=== PATIENT | female | born 1990 | race Two or more races ===

== ENCOUNTER 2017-02-27 19:22 | Emergency (ER) | payer MEDICAID ==
[~2017-02-27] VITALS: Ht 160 cm; Wt 63.0 kg
[~2017-02-27 19:22] MED LIST: ACET500C5 PO; CETI10CA PO; CIPR500T4 PO; GUAI120S26 PO; HYDR-906 PO; IBUP-1542 PO
[2017-02-27 19:28] VITALS: Ht 160 cm; Wt 63.0 kg
[2017-02-27 21:51] LABS: URINE BLOOD (Dip) POC 2+ (NEGATIVE)
[2017-02-27] MEDS ORDERED: morphine 4 MG/ML VIAL IV STA (21:54)
[2017-02-27] MEDS ORDERED: ONDANSETRON 4 MG INJ IV STA (21:54)
[2017-02-27] MEDS ORDERED: SOD CHLORIDE 0.9% 1,000 ML IV ONE (22:00)
--- NOTE | 2017-02-27 22:05 | ERD ---
ER Documentation Chief Complaint Date/Time DATE: 02/27/17 TIME: 21:57 Chief Complaint bladder infection x "months" HPI This is a 26-year-old female presenting to emergency department for left lower quadrant abdominal pain. States she has had intermittent left lower quadrant pain that has worsened today. Patient is seen crying while in the initial exam room. Patient states pain radiates from left lower quadrant to left flank. patient has dysuria without hematuria. Patient states last menstrual period 10/2017. Patient unsure on possibility of . Denies nausea, vomiting or diarrhea. No constipation. No fevers or chills. Denies chest pain, shortness of breath or difficulty breathing. Patient has history of chronic lower back pain. ROS All systems reviewed and are negative except as per history of present illness. Medications Home Meds Active Scripts Ibuprofen* (Motrin*) 600 Mg Tab, 600 MG PO Q6, #15 TAB Prov:GAVIN LYNCH NP 02/28/17 Tamsulosin Hcl* (Flomax*) 0.4 Mg Cap.er.24h, 0.4 MG PO DAILY, #5 CAP Prov:GAVIN LYNCH NP 02/28/17 Nitrofurantoin Monohyd Macrocr* (Macrobid*) 100 Mg Capsr, 100 MG PO BID for 5 Days, CAP Prov:GAVIN LYNCH NP 02/28/17 Hydrocodone/Acetaminophen (Ralston 5-325 Tablet) 1 Each Tablet, 1 TAB PO Q6H Y for PAIN, #15 TAB Prov:GAVIN LYNCH NP 02/28/17 Hydrocodone/Acetaminophen (Ralston 5-325 Tablet) 1 Each Tablet, 1 TAB PO Q6H Y for SEVERE PAIN LEVEL 7-10, #20 TAB Prov:ROMARIO HENRY NP 11/04/16 Ciprofloxacin Hcl* (Ciprofloxacin Hcl*) 500 Mg Tablet, 500 MG PO BID for 10 Days , TAB Prov:ROMARIO HENRY NP 11/04/16 Cetirizine Hcl* (Zyrtec*) 10 Mg Capsule, 10 MG PO DAILY, #30 TAB.CHEW Prov:ROMARIO HENRY NP 11/04/16 Uneehzjrcbc-M-Vrzrbiukvv Hb* (Guaifenesin* DM Syrup) 120 Ml Syrup, 10 ML PO Q4H Y for COUGH, #120 ML Prov:ROMARIO HENRY APPRAISER 11/04/16 Acetaminophen* (Tylophen*) 500 Mg Capsule, 1 CAP PO Q6H Y for PAIN AND OR ELEVATED TEMP, #20 CAP Prov:JOSSELYNROMARIO GAVIN APPRAISER 11/04/16 Ibuprofen* (Motrin*) 600 Mg Tab, 600 MG PO Q6H Y for PAIN AND OR ELEVATED TEMP, #30 TAB Prov:ROMARIO HENRY APPRAISER 11/04/16 Hydrocodone Bit-Acetaminophen (Ralston) 5-325 Mg Tablet, 1 TAB PO Q6 Y for PAIN, # 10 TAB Prov:TANIYA HERNANDEZ MD 12/25/15 Allergies Allergies: Coded Allergies: No Known Drug Allergies (Verified Allergy, Unknown, 12/25/15) PMhx/Soc History of Surgery: Yes (appendectomy) Anesthesia Reaction: No Hx Neurological Disorder: Yes (sciatica in past) Hx Respiratory Disorders: No Hx Cardiac Disorders: No Hx Psychiatric Problems: No Hx Miscellaneous Medical Probl: No Hx Alcohol Use: Yes (soccially) Hx Substance Use: Yes (marijuana regularly) Hx Tobacco Use: Yes Smoking Status: Current every day smoker Physical Exam Vitals Vital Signs Date Time Temp Pulse Resp B/P Pulse Ox O2 Delivery O2 Flow Rate FiO2 02/27/17 23:19 71 17 109/66 97 Room Air 02/27/17 19:28 97.8 62 17 126/79 99 Physical Exam Const: Alert, crying and writhing in pain Head: Atraumatic Eyes: Normal Conjunctiva ENT: Normal External Ears, Nose and Mouth. Neck: Full range of motion..~ No meningismus. Resp: Clear to auscultation bilaterally Cardio: Regular rate and rhythm, no murmurs Abd: Soft, non tender, non distended. Normal bowel sounds Skin: No petechiae or rashes Back: No midline or flank tenderness Ext: No cyanosis, or edema Neur: Awake and alert Psych: Normal Mood and Affect Result Diagram: 02/27/17220402/27/172204 Results 24 hrs Laboratory Tests Test 02/27/17 21:51 02/27/17 22:05 Bedside Urine pH (LAB) 5.5 Bedside Urine Protein (LAB) 1+ Bedside Urine Glucose (UA) Negative Bedside Urine Ketones (LAB) Negative Bedside Urine Blood 2+ Bedside Urine Nitrite (LAB) Negative Bedside Urine Leukocyte Esterase (L Trace White Blood Count 15.310^3/ul Red Blood Count 4.9410^6/ul Hemoglobin 12.7g/dl Hematocrit 41.9% Mean Corpuscular Volume 84.8fl Mean Corpuscular Hemoglobin 25.7pg Mean Corpuscular Hemoglobin Concent 30.3g/dl Red Cell Distribution Width 13.2% Platelet Count 23600^3/UL Mean Platelet Volume 9.9fl Neutrophils % 83.6% Lymphocytes % 10.0% Monocytes % 5.7% Eosinophils % 0.1% Basophils % 0.3% Nucleated Red Blood Cells % 0.0/100WBC Neutrophils # 12.810^3/ul Lymphocytes # 1.510^3/ul Monocytes # 0.910^3/ul Eosinophils # 0.010^3/ul Basophils # 0.010^3/ul Nucleated Red Blood Cells # 0.010^3/ul Sodium Level 141mmol/L Potassium Level 3.8mmol/L Chloride Level 102mmol/L Carbon Dioxide Level 25mmol/L Anion Gap 18 Blood Urea Nitrogen 17mg/dl Creatinine 0.81mg/dl Glucose Level 99mg/dl Calcium Level 9.7mg/dl Current Medications Medications (Trade) Dose Ordered Sig/Holly Route PRN Reason Start Time Stop Time Status Last Admin Dose Admin Sodium Chloride (NS) 1,000 ml @ 1,000 mls/hr Q1H ONCE IV 02/27/17 22:00 02/27/17 22:59 DC 02/27/17 22:21 Morphine Sulfate (morphine) 4 mg ONCE STAT IV 02/27/17 21:54 02/27/17 21:56 DC 02/27/17 22:21 Ondansetron HCl (Zofran Inj) 4 mg ONCE STAT IV 02/27/17 21:54 02/27/17 21:56 DC 02/27/17 22:21 Procedures/MDM ED COURSE: The patient was stable throughout ED course. I kept the patient and/or family informed of laboratory and diagnostic imaging results throughout the ED course. Laboratory CBC WBC 15.3 BMP no significant electrolyte imbalance Urine dip trace leukocytosis, 2+ blood, 1+ protein Urine negative Imaging CT abdomen and pelvis Patient: DAHIANA RAMIREZ : 1990 Age: 26 Sex: F MR #: [id number] DOS: 02/27/17 2154 Ordering MD: GAVIN LYNCH NP Location: [facility] Room/Bed: PROCEDURE: CT ABDOMEN/PELVIS WITHOUT CONTRAST CLINICAL INDICATION: 26-year-old female with left lower quadrant pain of increasing severity with associated diarrhea. TECHNIQUE: The study was performed utilizing a GE [employer] 64-slice CT scanner. Direct axial sections were obtained through the abdomen and pelvis without the use of intravenous contrast material. Sagittal and coronal reformations were obtained. One or more of the following dose reduction techniques were utilized: automated exposure control, adjustment of the mA and/ or kV according to patient's size or use of iterative reconstruction technique. The images were reviewed on a PACS workstation. CTD/vol = 10.5 mGy; Total Exam DLP = 529.5 mGy-cm. COMPARISON: None. FINDINGS: The lung bases are unremarkable. There is no evidence for significant pleural effusion. The liver has a normal size and contour without focal areas of abnormal density. No intrahepatic nor extrahepatic biliary ductal dilatation is seen. There is diffuse increased density within the gallbladder presumably representing sludge without evidence for calcified stones, significant wall thickening or pericholecystic fluid. The pancreas is without areas of abnormal attenuation. The spleen is identified and has a normal size without abnormal density. The adrenal glands are unremarkable. The right kidney is without abnormal density, calculi or obstruction. There is moderate left-sided hydroureteronephrosis with an obstructing calculus at the left ureterovesical junction region measuring approximately 8 x 9 x 5 mm. There is a small punctate 2 x 2 mm nonobstructing left mid renal calculus. The urinary bladder is decompressed. There is no evidence for bowel obstruction. The appendix is not clearly visualized however there is no periappendiceal inflammatory changes. The uterus is anteflexed. There is minimal pelvic free fluid. The aortoiliac vessels are without aneurysmal dilatation. The osseous structures are intact. IMPRESSION: 1. Moderate left-sided hydroureteronephrosis with an obstructing left ureterovesical junction 8 x 9 x 5 mm calculus. 2. Punctate nonobstructing left mid renal calculus. 3. Probable sludge within the gallbladder. 4. No evidence for bowel obstruction. 5. Minimal pelvic free fluid. Pelvic ultrasound Patient: DAHIANA RAMIREZ : 1990 Age: 26 Sex: F MR #: [id number] [facility] #: [id number] DOS: 02/27/17 2205 Ordering MD: GAVIN LYNCH NP Location: [facility] Room/Bed: PROCEDURE: US Non-OB Pelvis. CLINICAL INDICATION: Left pelvic pain for months. TECHNIQUE: Multiple sonographic images of the pelvis were obtained utilizing a transabdominal and endovaginal technique. The images were reviewed on a PACS workstation. COMPARISON: CT of the abdomen and pelvis dated 02/27/2017 FINDINGS: The uterus is visualized and measures 8.7 x 4.5 x 6.1 cm. The endometrial echo complex is normal and measures 12 mm. There are air bubbles in the cervical region. The right ovary measures 3.2 x 2.8 x 2.0 cm. The left ovary measures 3.0 x 2.0 x 2.1 cm. Blood flow is demonstrated to both ovaries. No adnexal masses are noted. There is a small volume of free fluid in the pelvis. IMPRESSION: 1. Air bubbles in the cervical region, corresponding to air seen in the vaginal canal on the prior CT. 2. Otherwise normal appearance of the uterus and ovaries. 3. Small volume of free pelvic fluid. MDM: 26-year-old female presents emergency department for left lower quadrant abdominal pain with dysuria. Patient states she has had symptoms for the past 2 months however pain worsened today. Patient states she was seen 2 months ago and was diagnosed with a urinary tract infection and given antibiotics. Upon initial assessment, patient is seen crying and writhing in pain. Urine was collected which revealed trace leukocytosis with 2+ blood and 1+ protein. Urine is negative. CMP and BMP were ordered. CT abdomen and pelvis were ordered. IV access obtained and patient given morphine and Zofran through the IV. Patient given 1 L fluid bolus of normal saline. CT abdomen pelvis reviewed by radiologist as moderate left-sided hydroureter nephrosis with obstructing left ureterovesical junction 8 x 9 x 5 mm calculus. Punctate nonobstructing left mid renal calculus. Probable sludge within the gallbladder. No evidence for bowel obstruction. Minimal pelvic free fluid. Pelvic US reviewed by radiologist as normal appearance of the uterus and ovaries. Small volume of free pelvic fluid. Upon reassessment, patient states pain has reduced and patient is now comfortable and smiling. Consulted Dr. Hernandez regarding this patient and findings. Dr. Hernandez suggested I consult the on-call urologist Dr. Escamilla. Consulted Dr. Escamilla regarding this patient and due to patient's stable vital signs and unremarkable creatinine, patient is able to be seen outpatient by Dr. Escamilla or other urologist for follow up on Friday03/03/2017. Differential diagnosis includes but not limited to diverticulitis, diverticulosis, UTI, pyelonephritis, nephrolithiasis, ovarian cyst, ovarian torsion and acute exacerbation of chronic low back pain. Patient is appropriate for outpatient management and will be discharged with prescription for Ralston, Ibuprofen and Flomax. Instructed patient to follow up with Dr. Escamilla on Friday03/03/2017. Return to ED for any worsening pain, vomiting, high fever, chest pain, shortness of breath, difficulty urination or any new or worsening symptoms. Spoke at length with patient regarding patient's diagnosis and management. Patient verbalizes understanding. All questions answered at discharge. Departure Diagnosis: Primary Impression: Nephrolithiasis Condition: Stable GAVIN LYNCH NP Feb 27, 2017 22:05
[2017-02-27 22:21] LABS: ADD SCAN DIFF NO
[2017-02-27 22:23] LABS: BASOPHILS % 0.3 % (0.0-2.0); EOSINOPHILS % 0.1 % (0.0-7.0); HEMATOCRIT 41.9 % (37.0-47.0); HEMOGLOBIN 12.7 g/dl (12.0-16.0); LYMPHOCYTES # 1.5 10^3/ul (0.8-2.9); MEAN CORPUSCULAR HEMOGLOBIN 25.7 pg (29.0-33.0); MEAN CORPUSCULAR HGB CONC 30.3 g/dl (32.0-37.0); MEAN CORPUSCULAR VOLUME 84.8 fl (82.0-101.0); MEAN PLATELET VOLUME 9.9 fl (7.4-10.4); MONOCYTE # 0.9 10^3/ul (0.3-0.9); MONOCYTES % 5.7 % (0.0-11.0); NEUTROPHIL # 12.8 10^3/ul (1.6-7.5); NEUTROPHILS % 83.6 % (39.0-77.0); PLATELET COUNT 304 10^3/UL (140-415); RED BLOOD COUNT 4.94 10^6/ul (4.20-5.40); RED CELL DISTRIBUTION WIDTH 13.2 % (11.5-14.5); WHITE BLOOD COUNT 15.3 10^3/ul (4.8-10.8)
[2017-02-27 22:35] LABS: POTASSIUM 3.8 mmol/L (3.5-5.1)
[2017-02-27 22:38] LABS: CREATININE 0.81 mg/dl (0.44-1.00)
[2017-02-27 22:39] LABS: CALCIUM 9.7 mg/dl (8.4-10.2)
--- NOTE | 2017-02-27 22:42 | RADRPT ---
PROCEDURE: CT ABDOMEN/PELVIS WITHOUT CONTRAST CLINICAL INDICATION: 26-year-old female with left lower quadrant pain of increasing severity with associated diarrhea. TECHNIQUE: The study was performed utilizing a GE [employer] 64-slice CT scanner. Direct axia l sections were obtained through the abdomen and pelvis without the use of intravenous contrast mate rial. Sagittal and coronal reformations were obtained. One or more of the following dose reduction t echniques were utilized: automated exposure control, adjustment of the mA and/or kV according to pat ient's size or use of iterative reconstruction technique. The [facility] CTD/vol = 10.5 mGy; Total Exam DLP = 529.5 mGy-cm. COMPARISON: None. FINDINGS: The lung bases are unremarkable. There is no evidence for significant pleural effusion. The liver has a normal size and contour without focal areas of abnormal density. No intrahepatic nor extrahepa tic biliary ductal dilatation is seen. There is diffuse increased density within the gallbladder pre sumably representing sludge without evidence for calcified stones, significant wall thickening or pe richolecystic fluid. The pancreas is without areas of abnormal attenuation. The spleen is identifi ed and has a normal size without abnormal density. The adrenal glands are unremarkable. The right ki dney is without abnormal density, calculi or obstruction. There is moderate left-sided hydrouretero nephrosis with an obstructing calculus at the left ureterovesical junction region measuring approxim ately 8 x 9 x 5 mm. There is a small punctate 2 x 2 mm nonobstructing left mid renal calculus. The urinary bladder is decompressed. There is no evidence for bowel obstruction. The appendix is not clearly visualized however there is no periappendiceal inflammatory changes. The uterus is anteflex ed. There is minimal pelvic free fluid. The aortoiliac vessels are without aneurysmal dilatation. T he osseous structures are intact. IMPRESSION: 1. Moderate left-sided hydroureteronephrosis with an obstructing left ureterovesical junction 8 x 9 x 5 mm calculus. 2. Punctate nonobstructing left mid renal calculus. 3. Probable sludge within the gallbladder. 4. No evidence for bowel obstruction. 5. Minimal pelvic free fluid. .Dave Marcus MD, MD Date Time Electronically viewed and signed by .Dave Marcus MD, on 02/27/2017 22:42 .M/
[2017-02-27 23:19] VITALS: BP 109/66; PULSE 71; RESP 17
[2017-02-28] MEDS ORDERED: TAMS-14 PO (00:05)
[2017-02-28] MEDS ORDERED: NITR-58 PO (00:05)
[2017-02-28] MEDS ORDERED: IBUP-1542 PO (00:05)
[2017-02-28] MEDS ORDERED: HYDR-906 PO (00:05)
--- NOTE | 2017-02-28 00:09 | RADRPT ---
PROCEDURE: US Non-OB Pelvis. CLINICAL INDICATION: Left pelvic pain for months. TECHNIQUE: Multiple sonographic images of the pelvis were obtained utilizing a transabdominal and endovaginal technique. The images were reviewed on a PACS workstation. COMPARISON: CT of the abdomen and pelvis dated 02/27/2017 FINDINGS: The uterus is visualized and measures 8.7 x 4.5 x 6.1 cm. The endometrial echo complex is normal and measures 12 mm. There are air bubbles in the cervical region. The right ovary measures 3.2 x 2.8 x 2.0 cm. The left ovary measures 3.0 x 2.0 x 2.1 cm. Blood flow is demonstrated to both ovaries. No adnexal masses are noted. There is a small volume of free fluid in the pelvis. IMPRESSION: 1. Air bubbles in the cervical region, corresponding to air seen in the vaginal canal on the prior CT. 2. Otherwise normal appearance of the uterus and ovaries. 3. Small volume of free pelvic fluid. RPTAT: HTAR .Juan Powell MD, Date Time Electronically viewed and signed by .Juan Powell MD, on 02/28/2017 00:09 .R/
== END 2017-02-28 00:48 | disposition home or self-care (01) ==
LOC: FTE 19:22
DX: N20.0 Calculus of kidney (principal); F17.210 Nicotine dependence, cigarettes, uncomplicated; R10.2 Pelvic and perineal pain
CPT/HCPCS: 74176; 76830; 76856; 80048; 81003; 85025; 96374; 96375; J2270; J2405; J7030; Z7502

== ENCOUNTER 2018-02-11 16:03 | Outpatient (CLI) | END 2018-02-11 21:12 | disposition home or self-care (01) ==